=== PATIENT | male | born 1965 | race Caucasian/White ===

== ENCOUNTER 2022-08-02 02:46 | Emergency (ER) | payer OTHER ==
[~2022-08-02] VITALS: Ht 185.4 cm; Wt 106.6 kg
[2022-08-02] MEDS ORDERED: IV NS 0.9% 1,000 ML BAG IV ONE (03:00)
--- NOTE | 2022-08-02 03:00 | NUR ---
[id number] FROM HOME C/O AMS, PASSOUT, -HEAD TRAUMA. PLACED COMFORTABLY IN BED. PATIENT IS AAOX3. DIAPHORETIC. ANSWERS SIMPLE QUESTIONS. WITH IV CANNULA ON RIGHT FA G18. ATTACHED TO MONITOR. VITALS CHECKED.
--- NOTE | 2022-08-02 03:00 | NUR ---
SEEN BY DR SEGOVIA AT TRIAGE.
[2022-08-02 03:15] LABS: BASOPHILS % (AUTO) 0.5 % (0.0-2.0); HEMATOCRIT 53 % (39-51); HEMOGLOBIN 18.2 g/dL (13.5-17.5); LYMPHOCYTES # (AUTO) 2.9 K/uL (0.8-4.8); LYMPHOCYTES % (AUTO) 44.5 % (20.0-44.0); MEAN CORPUSCULAR HGB CONC 35 g/dl (31.0-36.0); MEAN CORPUSCULAR VOLUME 88 fL (80-96); MONOCYTES # (AUTO) 0.6 K/uL (0.1-1.30); MONOCYTES % (AUTO) 9.2 % (2.0-12.0); NEUTROPHILS # (AUTO) 2.9 K/uL (1.8-8.9); NEUTROPHILS % (AUTO) 43.8 % (43.0-81.0); PLATELET COUNT (AUTO) 165 K/uL (150-450); RED BLOOD CELL COUNT(AUTO) 5.97 MIL/uL (4.5-6.0); WHITE BLOOD COUNT (AUTO) 6.6 K/uL (4.3-11.0)
--- NOTE | 2022-08-02 03:17 | NUR ---
IV CANNULA G18 INSERTED ON LEFT AC, BLOOD DRAWN AND SENT TO LAB
[2022-08-02 03:27] LABS: CALCIUM, SERUM 9.7 mg/dL (8.5-10.1); CARBON DIOXIDE 23 mmol/L (21-32); CHLORIDE 102 mmol/L (98-107); CREATININE 1.5 mg/dL (0.6-1.3); GLUCOSE 171 mg/dL (74-106); POTASSIUM 3.5 mmol/L (3.5-5.1); SODIUM SERUM 139 mmol/L (136-145); UREA NITROGEN, BLOOD 16 mg/dL (7-18)
--- NOTE | 2022-08-02 03:28 | NUR ---
URINE SPECIMEN SENT TO LAB.
--- NOTE | 2022-08-02 03:28 | NUR ---
URINE COLLECTED RUBY SENT TO LAB
[2022-08-02 03:33] LABS: ALANINE AMINOTRANSFERASE 55 U/L (12-78); ALBUMIN 4.4 g/dL (3.4-5.0); ALKALINE PHOSPHATASE 95 U/L (46-116); ASPARTATE AMINOTRANSFERASE 30 U/L (15-37); BILIRUBIN,DIRECT 0.1 mg/dL (0.0-0.2); BILIRUBIN,TOTAL 0.6 mg/dL (0.2-1.0); LIPASE 158 U/L (73-393); TOTAL PROTEIN, SERUM 7.8 g/dL (6.4-8.2)
--- NOTE | 2022-08-02 03:36 | NUR ---
LACTIC ACID 4.64
[2022-08-02 03:41] LABS: BILIRUBIN,URINE NEGATIVE (NEGATIVE); COLOR,URINE YELLOW (YELLOW); LEUKOCYTE ESTERASE ,URINE NEGATIVE (NEGATIVE); NITRITE, URINE NEGATIVE (NEGATIVE); PH,URINE 7.5 (5.0-8.0); PROTEIN,URINE 100 mg/dl (NEGATIVE); UGLUCOSE 100 MG/DL mg/dL (NEGATIVE); UROBILINOGEN,URINE 0.2 EU/dL (0.2)
--- NOTE | 2022-08-02 03:45 | NUR ---
PT TAKEN TO AND RETURNED FROM CT
--- NOTE | 2022-08-02 03:54 | NUR ---
CINDY COLLECTED AND SENT TO LAB
--- NOTE | 2022-08-02 04:21 | NUR ---
CALLED [facility] FOR CT HEAD READ
[2022-08-02] MEDS ORDERED: ONDANSETRON HCL/PF 4 MG/2 ML VIAL ONE ×2 (04:35→06:18)
--- NOTE | 2022-08-02 04:58 | NUR ---
CALLED [facility] FOR THE SECOND TIME FOR HEAD CT READ
[2022-08-02] MEDS ORDERED: ONDANSETRON HCL/PF - ER 4 MG/2 ML VIAL IV ONE (05:00)
--- NOTE | 2022-08-02 05:12 | NUR ---
JAN CALLED AND DR SMALL PAGED
--- NOTE | 2022-08-02 05:13 | NUR ---
BP ON HIGH SIDE. 171/103mmHg. DR SEGOVIA MADE AWARE WITH ORDERS TO START CARDEPINE DRIP.
--- NOTE | 2022-08-02 05:15 | NUR ---
DR SEGOVIA ON THE PHONE WITH DR SMALL FROM [facility]
[2022-08-02] MEDS ORDERED: NICARDIPINE IN DEXTROSE,ISO-OS 200 ML IV ONE (05:16)
[2022-08-02] MEDS ORDERED: LEVETIRACETAM (500MG) 500 MG/5 ML VIAL IV ONE ×2 (05:17→05:18)
[2022-08-02] MEDS ORDERED: HYDROMORPHONE 1 MG/1 ML DISP.SYRIN ONE ×2 (05:18→10:04)
--- NOTE | 2022-08-02 05:23 | NUR ---
ADDENDUM: Intravenous End Time Documentation: Nicardipine 40 mg IV 0.9 NS 250 ML : start time:0523 am ; end time: infusing during transfer to [place] IV site: PIV # 18 LAC Port # 1
--- NOTE | 2022-08-02 05:23 | NUR ---
BP 160/103mmHg, HR 64, SATS 94. CARDEPINE DRIP STARTED AT 5MG/HR. TO CLOSELY MONITOR PATIENT
--- NOTE | 2022-08-02 05:26 | NUR ---
BP 139/69mmHg, HR 75, SATS 99. DR SEGOVIA MADE AWARE. ORDERED TO HOLD CARDEPINE DRIP.
[2022-08-02] MEDS: NICARDIPINE HCL 40 MG in IV NS 0.9% 184 ML IV PRN ×3 (05:30→07:04)
[2022-08-02] MEDS ORDERED: LEVETIRACETAM (500MG) 1,000 MG in IV NS 0.9% 100 ML IV SCH (05:30)
[2022-08-02] MEDS ORDERED: HYDROMORPHONE 1 MG/1 ML DISP.SYRIN IV ONE ×2 (05:30→10:30)
--- NOTE | 2022-08-02 05:41 | NUR ---
REPAGED ADRIANA SEGOVIA'S ORDER
--- NOTE | 2022-08-02 05:56 | NUR ---
DR SEGOVIA ON THE PHONE WITH DR SMALL
[2022-08-02] MEDS ORDERED: LEVETIRACETAM (500MG) 1,000 MG in IV NS 0.9% 100 ML IV ONE (05:58)
[2022-08-02] MEDS ORDERED: IV NS 0.9% 250 ML IV ONE (06:02)
[2022-08-02] MEDS ORDERED: IOHEXOL-350 100 ML VIAL IV ONE (06:02)
[2022-08-02] MEDS ORDERED: CT SWABBABLE VALVE TRANS SET 1 EA INFUS.SET MC ONE (06:02)
--- NOTE | 2022-08-02 06:12 | NUR ---
LEFT FOR CT UNDER ACLS PROTOCOL
--- NOTE | 2022-08-02 06:15 | NUR ---
BROUGHT PT TO CT DEPT.
--- NOTE | 2022-08-02 06:20 | NUR ---
PT IS NAUSEATED, MEDS GIVEN
--- NOTE | 2022-08-02 06:24 | NUR ---
BACK FROM CT
--- NOTE | 2022-08-02 06:25 | NUR ---
POST CT PT COMPLAINING OF HEADACHE. VITALS CHECKED. BP 171/107mmHg, HR 80, SATS 99%. CARDEPINE 5MG/HR STARTED. VITALS BEING MONITORED.
[2022-08-02] MEDS ORDERED: ONDANSETRON HCL/PF 4 MG/2 ML VIAL IV ONE (06:30)
--- NOTE | 2022-08-02 06:45 | NUR ---
CALLED [facility] AND MARKED STA BRAIN RITICAL TO BE READ MUKUND
--- NOTE | 2022-08-02 06:47 | NUR ---
CALLED [facility] . WAS TOLD TO CALL THEM BACK WITH THE RESULT OF THE HEAD CTA.
--- NOTE | 2022-08-02 06:48 | NUR ---
VITALS CHECKED. BP 179/112mmHg, HR 81 SATS 99. CARDEPINE DRIP INCREASED TO 7mg/hr.
--- NOTE | 2022-08-02 07:28 | NUR ---
REPORT GIVEN TO MIKE GUILLEN.
--- NOTE | 2022-08-02 07:51 | NUR ---
radiology called to f/u on cta reading, and daughter informed
--- NOTE | 2022-08-02 09:22 | NUR ---
DR. LONDON FROM [facility] SPEAKING WITH DR. LÓPEZ.
--- NOTE | 2022-08-02 11:12 | NUR ---
Patient Tranfers to outside Facility [facility] sunset Physician:Anni Cespedes/Neuro Juan Ramirez Location: room 5108 ICU report [phone] CCT PRN eta 1300
--- NOTE | 2022-08-02 11:25 | NUR ---
report given to Kehinde MCKEON to continue care.
[2022-08-02 12:20] VITALS: BP 105/59
--- NOTE | 2022-08-02 13:26 | NUR ---
CALLED [facility] FOR UPDATE OF TRANSPORT: WILL CONTACT VENDOR AND CALL US BACK.
--- NOTE | 2022-08-02 13:28 | NUR ---
ADRIANA GEEP CALLED BACK... TRANSPORT STUCK IN TRAFFIC NEW ETA 134
--- NOTE | 2022-08-02 14:08 | NUR ---
report given to amanda MCKEON, patient going to [facility].
== END 2022-08-02 14:08 | disposition short-term general hospital (02) ==
LOC: ER 02:47
DX: I60.9 Nontraumatic subarachnoid hemorrhage, unspecified (principal); I10 Essential (primary) hypertension; E87.2 Acidosis; R41.0 Disorientation, unspecified; Z20.822 Contact with and (suspected) exposure to COVID-19
CPT/HCPCS: 99291; 96365 ×2; 96366 ×2; 96375; 93005; 71045; 96376; 70450; 70496; 85025; 80048; 87040 ×2; 83605 ×2; 83690; 80076; 81003; 36415; 84484; 85730; 87426; 80320; 80307; J2405 ×3; J7030 ×3; J7050 ×2; J1953; Q9967; J1170 ×2; C9803; G0480